=== PATIENT | female | born 1965 | race Caucasian/White ===

== ENCOUNTER 2022-01-23 16:32 | Outpatient (REF) | payer OTHER, SELFPAY ==
--- NOTE | ~2022-01-23 | MR_ITS ---
MR THORACIC SPINE WITHOUT AND WITH CONTRAST CLINICAL INFORMATION: Paraparesis. COMPARISON: None TECHNIQUE: MRI of the thoracic spine was obtained using routine sequences with and without contrast. Intravenous contrast: Gadavist 6.5 mL. FINDINGS: 12 rib bearing thoracic type vertebral bodies. There is a midthoracic kyphosis and there is a mild rightward convex scoliotic curvature of the thoracic spine. Mild chronic compression deformities at T3, T4, T6, T7, and T10. No bone marrow edema to suggest an acute fracture. Thoracic cord morphology is normal. No definite thoracic cord signal changes accounting for artifact. No thoracic cord compression. The conus terminates at the L1-L2 level. Small paracentral disc protrusions at T4-T5, T5-T6, T6-T7, T7-T8, T8-T9, T9-T10, T10-T11, and T11-T12 mildly indent the ventral thecal sac at these levels without resulting in significant central canal stenosis. Multilevel endplate osteophytes. No severe central canal stenosis and no severe foraminal stenosis within the thoracic spine. MR/MR thoracic spine wo/w con IMPRESSION: There is mild to moderate thoracic spondylosis. No severe central canal stenosis and no severe foraminal stenosis within the thoracic spine. No pathologic enhancement. Thoracic kyphoscoliosis.
== END 2022-01-23 16:33 | disposition home or self-care (01) ==
LOC: HO.MRI 16:32
PROVIDERS: Visit Provider Psychiatry & Neurology Neurology
DX: G82.20 Paraplegia, unspecified (principal)
CPT/HCPCS: 72157; A9585

== ENCOUNTER 2022-02-01 10:56 | Outpatient (REF) | payer OTHER, SELFPAY ==
--- NOTE | ~2022-02-01 | MR_ITS ---
EXAMINATION: MR CERVICAL SPINE WITHOUT CONTRAST CLINICAL INFORMATION: 56-year-old with self-reported right foot numbness with awkward gait. Paraparesis. COMPARISON: None. TECHNIQUE: MRI of the cervical spine was obtained using routine sequences without contrast. FINDINGS: ALIGNMENT: Slight lordotic reversal centered at C5-C6. No spondylolisthesis. CRANIOCERVICAL JUNCTION/C1-C2 ARTICULATIONS: The atlantooccipital joints are intact and aligned. There is slight retrolisthesis of the right C1-C2 facet joint, which is nonspecific. VISUALIZED INTRACRANIAL STRUCTURES: Within normal limits. VERTEBRAL BODIES: Normal height. DISC SPACES AND ENDPLATES: Bvnp-sn-ddqqlytz disc space height loss at C4-C5 noted and refppnku-vi-jflwvy disc space height loss at C5-C6 and C6-C7 with minor spondylosis. BONE MARROW: No significant marrow-replacing process or bone marrow edema. C2-C3: No disc herniation or canal stenosis. No DJD or neural foraminal stenosis. C3-C4: No disc herniation or canal stenosis. Minor uncinate process and facet arthropathy noted with [id number]-[id number]-[id number] right-sided neural foraminal stenosis. C4-C5: Broad-based central disc protrusion, with flattening of the ventral dural sac without cord impingement. Mild central canal stenosis is noted. There is minor uncinate process and facet arthrosis without significant neural foraminal stenosis. C5-C6: Broad-based the disc osteophyte complex is noted with effacement of the ventral dural sac, slightly deforming the ventral aspect of the spinal cord with [id number] central canal stenosis. Bilateral uncovertebral spurring is noted with jiuz-cv-sohawdqs right and mild left-sided neural foraminal stenosis. C6-C7: Broad-based disc osteophyte complex is noted, with flattening of the ventral dural sac with mild ventral cord deformity and mild central canal stenosis. There is uncovertebral arthrosis bilaterally with moderate left-sided and mild right-sided neural foraminal stenosis. C7-T1: No disc herniation or canal stenosis. Mild right and moderate left-sided facet arthropathy noted with ligamentum flavum thickening, with mild left-sided neural foraminal stenosis. SPINAL CORD: The cervical and visualized upper thoracic spinal cord is normal in signal intensity throughout, without focal lesion, edema or syrinx. EXTRACRANIAL SOFT TISSUES: The visualized extracranial head/neck soft tissues are unremarkable within the limitations of the study. MR/MR cervical spine wo con IMPRESSION: 1. Slight lordotic reversal centered at C5-C6 with discogenic degenerative changes primarily between C4-C5 and C6-C7 inclusive. 2. Broad-based central disc protrusion at C4-C5 and posterior disc osteophyte complexes at C5-C6 and C6-C7 as described above with [id number] central canal stenosis at C5-C6, mild central canal stenosis at C4-C5 and C6-C7. There are mild degrees of chronic ventral cord deformity at C5-C6 and C6-C7 suggesting a slight degree of spinal cord volume loss at these levels. 3. Multilevel DJD with syas-ma-mynwqwsp right and mild left-sided neural foraminal stenosis at C5-C6, moderate left-sided and mild right-sided neural foraminal stenosis at C6-C7 and mild left-sided neural foraminal stenosis at C7-T1. Msgi-yp-caolykph right-sided neural foraminal stenosis at C3-C4.
== END 2022-02-01 10:57 | disposition home or self-care (01) ==
LOC: HO.MRI 10:56
PROVIDERS: Visit Provider Psychiatry & Neurology Neurology
DX: G82.20 Paraplegia, unspecified (principal); R20.0 Anesthesia of skin; R26.9 Unspecified abnormalities of gait and mobility
CPT/HCPCS: 72141

== ENCOUNTER 2022-02-09 14:10 | Outpatient (REF) | payer OTHER, SELFPAY ==
--- NOTE | ~2022-02-09 | MR_ITS ---
EXAMINATION: MRI BRAIN WITHOUT CONTRAST CLINICAL INFORMATION: Paraparesis. COMPARISON: No relevant prior imaging. TECHNIQUE: Multiplanar MR imaging of the brain was performed without contrast. FINDINGS: There is a tiny nonspecific focus of T2 FLAIR signal hyperintensity located within the subcortical white matter of the right superior frontal gyrus. No acute territorial infarct. No pathological magnetic susceptibility artifact. Intracranial vascular flow voids are maintained. There is no intracranial mass effect or midline shift. No abnormal extra-axial collection. Lateral and third ventricles are normal. No hydrocephalus. Midline structures including the cervicomedullary junction are normal. No acute bone marrow signal changes. There is no mastoid or middle ear effusion. No active paranasal sinus disease. Globes and orbits are symmetric. MR/MR head/brain wo con IMPRESSION: Unremarkable examination in that there is no intracranial mass effect or hydrocephalus. No evidence of acute territorial infarct or hemorrhage.
== END 2022-02-09 14:11 | disposition home or self-care (01) ==
LOC: HO.MRI 14:10
PROVIDERS: Visit Provider Psychiatry & Neurology Neurology
DX: G82.20 Paraplegia, unspecified (principal)
CPT/HCPCS: 70551